=== PATIENT | male | born 1955 | race African-American/Black ===

== ENCOUNTER 2016-12-26 13:05 | Day surgery (SDC) | payer OTHER ==
[2016-12-26] VITALS (15 sets, daily range): BP systolic 152–197; BP diastolic 72–94; PULSE 76–96; RESP 16–21; Ht 188 cm; Wt 88.5 kg
[~2016-12-26] VITALS: Ht 188 cm; Wt 88.5 kg
[~2016-12-26 13:05] MED LIST: CEFAZOLIN 1 GM INJ ONE; CEFAZOLIN 2 GM/50 ML (PMX) 50 ML IVPB SCH; LACTATED RINGER'S 1,000 ML IV* SCH
--- NOTE | 2016-12-26 14:04 | HPN ---
Date/Time of Note Date/Time of Note DATE: 12/26/16 TIME: 14:03 Interval H&P Admission Note Pt. seen H&P reviewed: No system changes TASH SCHAFFER Dec 26, 2016 14:04
[2016-12-26] MEDS ORDERED: IBUP1TAB76 PO (14:22)
[2016-12-26] MEDS ORDERED: GLYCOPYRROLATE 0.4 MG INJ ONE (15:15)
[2016-12-26] MEDS ORDERED: MIDAZOLAM 1 MG/ML 2 ML INJ ONE (15:15)
[2016-12-26] MEDS ORDERED: FENTAnyl 50 MCG/ML VIAL ONE ×2 (15:15→16:08)
[2016-12-26] MEDS ORDERED: ROCURONIUM 50 MG INJ ONE (15:15)
[2016-12-26] MEDS ORDERED: NEOSTIGMINE 3 MG/3 ML SYRINGE ONE (15:15)
[2016-12-26] MEDS ORDERED: PROPOFOL 20 ML ONE (15:15)
[2016-12-26] MEDS ORDERED: LIDOCAINE 2% (SDV) 5 ML INJ ONE (15:15)
[2016-12-26] MEDS ORDERED: ROPIVACAINE 0.5 % 30 ML VIAL ONE (15:16)
[2016-12-26] MEDS ORDERED: LIDOCAINE 2%/EPI 30 ML INJ ONE (15:16)
[2016-12-26] MEDS ORDERED: DEXAMETHASONE 4 MG/ML 1 ML INJ ONE (15:16)
[2016-12-26] MEDS ORDERED: ONDANSETRON 4 MG INJ ONE (15:17)
[2016-12-26] MEDS ORDERED: MIDAZOLAM 1 MG/ML 2 ML INJ IV PRN (15:30)
[2016-12-26] MEDS ORDERED: ONDANSETRON 4 MG INJ IV PRN (15:30)
[2016-12-26] MEDS ORDERED: LABETALOL HCL 20MG INJ IV PRN (15:30)
[2016-12-26] MEDS ORDERED: DIPHENHYDRAMINE 50 MG INJ IV PRN (15:30)
[2016-12-26] MEDS ORDERED: FENTAnyl 50 MCG/ML VIAL IV PRN ×2 (15:30)
[2016-12-26] MEDS ORDERED: HYDROmorphONE (0.2 MG/ML) 10ML SYG IV PRN ×3 (15:30)
[2016-12-26] MEDS ORDERED: OXYCODONE/ACETAMINOPHEN (5/325) TAB PO PRN ×2 (15:30)
[2016-12-26] MEDS ORDERED: EPHEDrine SULFATE 50 MG/5 ML SYG IV PRN (15:30)
[2016-12-26] MEDS ORDERED: morphine (1 MG/ML) 10ML SYRINGE IV PRN ×3 (15:30)
[2016-12-26] MEDS ORDERED: ATROPINE 1 MG/10 ML SYRINGE IV PRN (15:30)
[2016-12-26] MEDS ORDERED: hydrALAzine 20 MG INJ IV PRN (15:30)
[2016-12-26] MEDS ORDERED: MEPERIDINE 25 MG INJ IV PRN (15:30)
[2016-12-26] MEDS ORDERED: POLYMYXIN/BACITRACIN 1L IRRIG ONE (16:00)
[2016-12-26] MEDS ORDERED: BUPIVACAINE 0.5% (SDV) 30 ML INJ ONE (16:00)
[2016-12-26] MEDS ORDERED: GELATIN SIZE 100 SPONGE ONE (18:35)
--- NOTE | 2016-12-26 21:42 | OPR ---
DATE OF OPERATION: 12/26/2016 SURGEON: Tash Shen MD ANESTHESIA: Peripheral nerve block plus general. PREOPERATIVE DIAGNOSES: 1. 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 2. Right carpal tunnel syndrome. POSTOPERATIVE DIAGNOSES: 1. 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 2. Right carpal tunnel syndrome. PROCEDURES: 1. Excision of right scaphoid (carpal bone). 2. Right wrist 4-corner fusion (fusion of carpal bones). 3. Right carpal tunnel release, open. 4. [place] of bone autograft from the right distal radius. OPERATIVE FINDINGS: Severe arthritis within the radioscaphoid joint with preservation of the radial lunate joint. INDICATIONS FOR PROCEDURE: This is a 61-year-old male with longstanding right wrist pain. He tried conservative management previously, seeing me, including injections, bracing, and anti-inflammatori es, and failed all of these. He has persistent pain and swelling, as well as carpal tunnel syndrome on the right side, and elected to proceed with operative intervention, understanding risks and bene fits. DESCRIPTION OF PROCEDURE: The patient was seen in the preoperative area and all of their questions were answered. Again, he gave informed consent, understanding the risks and benefits. He was taken to the operative suite and placed in supine position. He was placed under general anesthesia, and tourniquet placed on the right lower extremity. Right upper extremity was prepped with ChloraPrep s tick and draped in the usual sterile fashion. Ancef 2 grams was administered. Esmarch bandage was used to exsanguinate the extremity and tourniquet inflated to 250 mmHg. Attention was first turned to the carpal tunnel. A 3 cm incision over the base of the palm was utilized, with sharp dissection carried down through skin and subcutaneous tissue. The palmar aponeurosis was identified and was i ncised along the ulnar border. The transverse carpal ligament was identified and incised approximat cornel 3 mm radial to the hook of the hamate. A curved hemostat was used to spread distally, as well a s proximally, and the transverse carpal ligament was directly visualized, and was incised along its ulnar border. The carpal tunnel contents were completely decompressed, wound was copiously irrigate d, and skin closed with 4-0 nylon. Attention was turned to the back of the wrist, and a longitudina l incision was utilized measuring approximately 10 cm. Sharp dissection was carried down through sk in and subcutaneous tissue. The extensor retinaculum was identified and a Z-type incision with flap s for closure was created. The extensor tendons were retracted radially and ulnarly and the capsule was visualized. The capsule was incised along its midline and the carpal bones were visualized. T he scaphoid had significant arthritis at its proximal pole, with its articulation with the radius, a nd the scaphoid was resected completely. The remainder of the carpal bones were preserved. The sca phoid bone that had been removed was used for bone grafting with the cancellous bone set aside for l ater. Attention was then turned to the lunate capitate triquetrum and hamate, and there was extensi on deformity to the lunate, which made it barely visible at the beginning of procedure. With centra l force directed volarly at the capitate and the lunate, I was able to get the bones in a more appro priate position. The joints between all 4 of these bones were debrided with no cartilage remaining, and cancellous bone exposed on all joint surfaces. The bones were placed in the appropriate positi on, and K-wires were driven across to secure the bones in that position. A [place] reamer was used to create the circular hole for the 4-corner fusion. A large [employer] 4-corner fusion plate was fa shioned to the site and found to fit nicely and was buried deep below the bone surface. At this poi nt, I turned my attention to the distal radius to harvest bone autograft. Jesus Manuel's tubercle was max geured and that bone was set aside for bone grafting. The cancellous bone was removed with a large curette and was placed with the other bone autograft for application in the 4-corner fusion site. A fter an adequate amount of cancellous bone was obtained, the wound was irrigated copiously and Gelfo am was placed into the distal radius site. The bone graft was placed into the 4-corner fusion site between the joints. The [employer] 4-corner fusion plate was applied, and the inner cortical screws w ere placed, compressing the bones together nicely. Locking screws were placed in the remaining 8 ho les. The K-wires were removed, and the wrist was ranged showing no mechanical block. There was gian e smooth range of motion. Flexion was to 60 degrees and extension was to 50. The capsule was repai red with 2-0 Ethibond, and the extensor retinaculum was also repaired with 2-0 Ethibond. Skin close d with 4-0 nylon. Xeroform was placed over the wound, followed by sterile gauze, Webril, and a shor t-arm splint. Tourniquet was deflated after 120 minutes, and the patient was awakened from anesthes ia. He was taken to the postoperative suite in stable condition and tolerated the procedure well wi thout complication. SPECIMENS: None. ESTIMATED BLOOD LOSS: 5 mL. SPONGE, INSTRUMENT, NEEDLE COUNTS: Correct. TOURNIQUET TIME: 120 minutes. FLUOROSCOPIC IMAGES: 8. CONDITION AT DISCHARGE: Stable. Dictated By: TASH EDWARD/BREONNA Conf#: [id number] DID#: [id number]
--- NOTE | 2016-12-27 10:15 | RADRPT ---
PROCEDURE: X-ray fluoroscopy guidance CLINICAL INDICATION: Pain TECHNIQUE: Fluoroscopic guidance was utilized for right wrist fusion. COMPARISON: None available FINDINGS: Posterior surgical plate is in place. Surgical screws are seen traversing the capitate, hamate and triquetral bones. 22 seconds of fluoroscopy time was utilized for the procedure. 11 images were ob tained during the procedure in progress. IMPRESSION: 1. X-ray fluoroscopic guidance, as above. RPTAT: PP .Alfredito Vásquez MD, Date Time Electronically viewed and signed by .Alfredito Vásquez MD, MD on 12/27/2016 10:14 .R/
== END 2016-12-26 20:57 | disposition home or self-care (01) ==
LOC: SDS 13:05
PROVIDERS: ATTEND Orthopaedic Surgery Hand Surgery
DX: G56.01 Carpal tunnel syndrome, right upper limb (principal); M13.831 Other specified arthritis, right wrist; I10 Essential (primary) hypertension
CPT/HCPCS: 25810; 64721; 73110; J0360; J0690; J1100; J2250; J2405; J2710; J2795; J3010